=== PATIENT | female | born 1955 | race Caucasian/White ===

== ENCOUNTER 2017-10-20 15:05 | Observation (INO) ==
--- NOTE | 2017-10-20 15:09 | Emergency Department Note ---
Disposition Clinical Impression: Dizziness, Atrial fibrillation, History of Coumadin therapy, Obesity, History of CHF (congestive heart failure) Disposition: Admitted As Inpatient Referrals: Tj Dinh DO [Primary Care Provider] - General Adult HPI - General Stated complaint: Dizzy Time Seen by Provider: 10/20/17 15:07 - History of Present Illness HPI Narrative: 7-year-old female reports emergency department via EMS, there is concern for dizziness. The patient reports she is so dizzy she cannot stand up. She describes nausea. He patient denies any chest pain shortness of breath or abdominal pain no vomiting but she has had recurrent diarrhea. There is no history of fever sore throat runny nose or ear pain. No acute back pain. She has no history of CAD but does have a history of atrial fibrillation. She has not passed out. The patient denies any strokelike symptoms no numbness or weakness in extremity is no bowel or bladder problems no slurred speech or unilateral arm or leg weakness or numbness no facial drooping. The patient denies a headache. He states the difficulties began about 11:30 AM, she was laying bed turn her head decided try to get up and became so dizzy she was unable to walk. She describes significant nausea. There is no history of bleeding of any sort. She is anticoagulated secondary to atrial fibrillation she takes Coumadin. The patient has never had a stroke. - Related Data Home Medications Medication Instructions Recorded Confirmed Diltiazem HCl [Diltiazem ER] 180 mg PO QPM 10/20/17 10/20/17 Furosemide [Lasix] 40 mg PO DAILY 10/20/17 10/20/17 Levothyroxine [Synthroid] 150 mcg PO QAM 10/20/17 10/20/17 Lisinopril/Hydrochlorothiazide 1 each PO DAILY 10/20/17 10/20/17 [Zestoretic 20-12.5 mg Tablet] Metoprolol Succinate 200 mg PO DAILY 10/20/17 10/20/17 Warfarin [Coumadin] 7.5 mg PO 1800 10/20/17 10/20/17 Allergies Allergy/AdvReac Type Severity Reaction Status Date / Time prednisone Allergy Insomnia Verified 10/20/17 15:13 All systems ED: reviewed and negative except as stated. Past Medical History - Past Medical History Medical history: Reports: atrial fibrillation, CHF, hypertension Surgical history: Reports: breast surgery Psychiatric history: Reports: no psych history - Social History Smoking Status: Never smoker Smokeless Tobacco Status: No Alcohol use: Reports: occasionally Drug use: Reports: none Physical Exam - General Limitations: no limitations - Head Head exam: atraumatic, normocephalic, normal inspection - Eye Eye exam: Present: normal appearance, PERRL, EOMI - ENT ENT exam: normal exam, normal oropharynx, mucous membranes moist - Neck Neck exam: Present: normal inspection, full ROM, trachea midline - Chest Chest inspection: Present: symmetric chest wall rise. Absent: tenderness - Respiratory Respiratory exam: Present: normal lung sounds bilaterally - Cardiovascular Cardiovascular exam: Present: regular rate, irregular rhythm - Abdominal Exam Abdominal exam: Present: soft, Non-Tender. Absent: tenderness, distention, guarding, rebound, rigidity - Extremities Exam Extremities exam: Present: normal inspection, full ROM, normal capillary refill. Absent: tenderness, pedal edema, joint swelling, calf tenderness - Expanded Lower Extremity Exam Lower leg exam: Absent: Homans' sign Neurovascular/Tendon exam: Present: normal capillary refill. Absent: pulse deficit, motor deficit, sensory deficit, tendon deficit, extremity cold to touch , pallor - Back Exam Back exam: Present: normal inspection, full ROM. Absent: tenderness, CVA tenderness (R), CVA tenderness (L), vertebral tenderness, sciatic notch tenderness (L) - Neurological Exam Neurological exam: Present: alert, oriented X3, CN II-XII intact. Absent: motor sensory deficit - Skin Skin exam: Present: warm, dry, intact, normal color. Absent: rash, cyanosis, diaphoresis, erythema, pallor, mottled Course Vital Signs Temperature 98.1 F 10/20/17 15:11 Pulse Rate 90 10/20/17 15:11 Respiratory Rate 16 10/20/17 15:11 Blood Pressure 133/80 10/20/17 15:11 O2 Sat by Pulse Oximetry 100 10/20/17 15:11 Temperature 98.1 F 10/20/17 15:11 Pulse Rate 82 10/20/17 16:33 Respiratory Rate 16 10/20/17 16:33 Blood Pressure 149/87 10/20/17 16:33 O2 Sat by Pulse Oximetry 98 10/20/17 16:33 Oxygen Delivery Oxygen Delivery Room Air Medical Decision Making - [facility] Narrative Medical decision making narrative: The patient complains of dizziness which began about 11:30 AM, she has been so dizzy she is been able to get out of bed or walk. Per reports EMS was unable to have her sit up or stand up and had a rollover onto a cot. The emergency department the patient was given Zofran for nausea given a dose of Antivert. CT scan of the head reveals no acute process. Chest x-ray shows changes suggestive of CHF. The patient has a history of atrial for ablation is anticoagulated INR 2.6. In the ED we attempted to get orthostatic blood pressures patient so dizzy she could not even sit up. She was unable to walk in the emergency department or department or clot. Given her age, history of atrial fibrillation, as well as anticoagulant status, with persistent intractable dizziness and nonambulatory state, I thought it be appropriate to admit the patient to hospital. The patient may have an element of peripheral vertigo however central sources cannot be ruled out definitively without further testing. Perhaps an MRI would be helpful with neurology consult. The patient did describe some diarrhea which was nonbloody, she does not have tachycardia or hypotensive and I did not feel that orthostatic hypotension is necessarily the causative etiology for her dizziness. I have consulted with the hospitalist on-call who has accepted the patient to their care. The patient is agreeable with admission. The patient did also report that she has had recurrent bouts of dizziness over the last month causing her having difficulty to walk. Crescendo TIA or posterior circulations issues may be relevant. - Lab Data Lab results reviewed: Yes I reviewed the patient's lab results. Result diagrams: 10/20/17 15:19 10/20/17 15:19 Lab Results 10/20/17 10/20/17 10/20/17 Range/Units 15:19 15:19 15:19 WBC 7.5 (4.3-11.1) K/mcL RBC 4.72 (3.82-4.97) M/mcL Hgb 14.1 (11.5-15.4) g/dL Hct 41.0 (35.3-44.9) % MCV 86.9 (83.0-100.0) fL MCH 29.9 (28.0-33.3) pg MCHC 34.4 (31.6-35.5) g/dL RDW 13.2 (11.5-14.5) % Plt Count 298 (140-400) K/mcL MPV 10.6 (9.4-12.4) fL Immature Gran % 0.3 (0-4) % Seg Neutrophils % 68.2 % Lymphocytes % 20.9 % Monocytes % 7.2 % Eosinophils % 2.7 % Basophils % 0.7 % Neutrophils # 5.1 (1.6-8.9) K/mcL Lymphocytes # 1.6 (0.6-4.6) K/mcL Monocytes # 0.5 (0.0-1.3) K/mcL Eosinophils # 0.2 (0.0-0.6) K/mcL Basophils # 0.1 (0.0-0.2) K/mcL PT (9.4-12.1) Seconds INR APTT (26.0-36.0) Seconds Sodium 135 L (136-145) mEq/L Potassium 3.6 (3.5-5.1) mEq/L Chloride 101 (98-107) mEq/L Carbon Dioxide 24 (23-29) mEq/L BUN 16 (8-23) mg/dL Creatinine 0.84 (0.60-1.20) mg/dL Est GFR ( Amer) > 60 (> 60) Est GFR (Non-Af Amer) > 60 (> 60) BUN/Creatinine Ratio 19 (6-26) Glucose 123 H (70-105) mg/dL Calculated Osmolality 283 (280-300) Lactic Acid (0.5-2.2) mmol/L Calcium 9.2 (8.6-10.3) mg/dL Total Bilirubin 0.7 (0.3-1.0) mg/dL Direct Bilirubin 0.1 (0.0-0.2) mg/dL Indirect Bilirubin 0.6 (0.0-1.2) mg/dL AST 17 (13-39) Units/L ALT 16 (7-52) Units/L Alkaline Phosphatase 93 (34-104) Units/L Troponin I < 0.03 (< 0.04) ng/mL C-Reactive Protein 17 H (Less than 10) mg/L B-Natriuretic Peptide (Less than 100) pg/mL Serum Total Protein 6.7 (6.4-8.9) g/dL Albumin 4.1 (3.5-5.7) g/dL Globulin 2.6 (2.4-3.5) g/dL Albumin/Globulin Ratio 1.6 (1.1-2.2) Urine Color (Yellow) Urine Clarity (Clear) Urine pH (5.0-8.0) pH Units Ur Specific [place] (1.010-1.025) Urine Protein (Neg-Trace) mg/dL Urine Glucose (UA) (Normal) mg/dL Urine Ketones (Negative) mg/dL Urine Blood (Negative) Urine Nitrite (Negative) Urine Bilirubin (Negative) Urine Urobilinogen (Normal) mg/dL Ur Leukocyte Esterase (Negative) Ur Culture Indicated? (NO) 10/20/17 10/20/17 10/20/17 Range/Units 15:19 15:19 15:46 WBC (4.3-11.1) K/mcL RBC (3.82-4.97) M/mcL Hgb (11.5-15.4) g/dL Hct (35.3-44.9) % MCV (83.0-100.0) fL MCH (28.0-33.3) pg MCHC (31.6-35.5) g/dL RDW (11.5-14.5) % Plt Count (140-400) K/mcL MPV (9.4-12.4) fL Immature Gran % (0-4) % Seg Neutrophils % % Lymphocytes % % Monocytes % % Eosinophils % % Basophils % % Neutrophils # (1.6-8.9) K/mcL Lymphocytes # (0.6-4.6) K/mcL Monocytes # (0.0-1.3) K/mcL Eosinophils # (0.0-0.6) K/mcL Basophils # (0.0-0.2) K/mcL PT 28.2 H (9.4-12.1) Seconds INR 2.6 APTT 46.4 H (26.0-36.0) Seconds Sodium (136-145) mEq/L Potassium (3.5-5.1) mEq/L Chloride (98-107) mEq/L Carbon Dioxide (23-29) mEq/L BUN (8-23) mg/dL Creatinine (0.60-1.20) mg/dL Est GFR ( Amer) (> 60) Est GFR (Non-Af Amer) (> 60) BUN/Creatinine Ratio (6-26) Glucose (70-105) mg/dL Calculated Osmolality (280-300) Lactic Acid 2.2 (0.5-2.2) mmol/L Calcium (8.6-10.3) mg/dL Total Bilirubin (0.3-1.0) mg/dL Direct Bilirubin (0.0-0.2) mg/dL Indirect Bilirubin (0.0-1.2) mg/dL AST (13-39) Units/L ALT (7-52) Units/L Alkaline Phosphatase (34-104) Units/L Troponin I (< 0.04) ng/mL C-Reactive Protein (Less than 10) mg/L B-Natriuretic Peptide (Less than 100) pg/mL Serum Total Protein (6.4-8.9) g/dL Albumin (3.5-5.7) g/dL Globulin (2.4-3.5) g/dL Albumin/Globulin Ratio (1.1-2.2) Urine Color Yellow (Yellow) Urine Clarity Clear (Clear) Urine pH 7.0 (5.0-8.0) pH Units Ur Specific [place] 1.010 (1.010-1.025) Urine Protein Negative (Neg-Trace) mg/dL Urine Glucose (UA) Normal (Normal) mg/dL Urine Ketones 15 H (Negative) mg/dL Urine Blood Negative (Negative) Urine Nitrite Negative (Negative) Urine Bilirubin Negative (Negative) Urine Urobilinogen Normal (Normal) mg/dL Ur Leukocyte Esterase Negative (Negative) Ur Culture Indicated? NO (NO) 10/20/17 Range/Units 16:11 WBC (4.3-11.1) K/mcL RBC (3.82-4.97) M/mcL Hgb (11.5-15.4) g/dL Hct (35.3-44.9) % MCV (83.0-100.0) fL MCH (28.0-33.3) pg MCHC (31.6-35.5) g/dL RDW (11.5-14.5) % Plt Count (140-400) K/mcL MPV (9.4-12.4) fL Immature Gran % (0-4) % Seg Neutrophils % % Lymphocytes % % Monocytes % % Eosinophils % % Basophils % % Neutrophils # (1.6-8.9) K/mcL Lymphocytes # (0.6-4.6) K/mcL Monocytes # (0.0-1.3) K/mcL Eosinophils # (0.0-0.6) K/mcL Basophils # (0.0-0.2) K/mcL PT (9.4-12.1) Seconds INR APTT (26.0-36.0) Seconds Sodium (136-145) mEq/L Potassium (3.5-5.1) mEq/L Chloride (98-107) mEq/L Carbon Dioxide (23-29) mEq/L BUN (8-23) mg/dL Creatinine (0.60-1.20) mg/dL Est GFR ( Amer) (> 60) Est GFR (Non-Af Amer) (> 60) BUN/Creatinine Ratio (6-26) Glucose (70-105) mg/dL Calculated Osmolality (280-300) Lactic Acid (0.5-2.2) mmol/L Calcium (8.6-10.3) mg/dL Total Bilirubin (0.3-1.0) mg/dL Direct Bilirubin (0.0-0.2) mg/dL Indirect Bilirubin (0.0-1.2) mg/dL AST (13-39) Units/L ALT (7-52) Units/L Alkaline Phosphatase (34-104) Units/L Troponin I (< 0.04) ng/mL C-Reactive Protein (Less than 10) mg/L B-Natriuretic Peptide 138 H (Less than 100) pg/mL Serum Total Protein (6.4-8.9) g/dL Albumin (3.5-5.7) g/dL Globulin (2.4-3.5) g/dL Albumin/Globulin Ratio (1.1-2.2) Urine Color (Yellow) Urine Clarity (Clear) Urine pH (5.0-8.0) pH Units Ur Specific [place] (1.010-1.025) Urine Protein (Neg-Trace) mg/dL Urine Glucose (UA) (Normal) mg/dL Urine Ketones (Negative) mg/dL Urine Blood (Negative) Urine Nitrite (Negative) Urine Bilirubin (Negative) Urine Urobilinogen (Normal) mg/dL Ur Leukocyte Esterase (Negative) Ur Culture Indicated? (NO) - Radiology Data Radiology results reviewed: Yes I reviewed the patient's radiology results.
[2017-10-20] MEDS ORDERED: Ondansetron 4 MG/2 ML VIAL IVP ONE (15:14)
[2017-10-20] MEDS ORDERED: 0.9 % Sodium Chloride 1,000 ML IVC SCH (15:15)
[2017-10-20 15:38] LABS: Basophils # 0.1 K/mcL (0.0-0.2); Basophils % 0.7 %; Eosinophils # 0.2 K/mcL (0.0-0.6); Eosinophils % 2.7 %; Hemoglobin 14.1 g/dL (11.5-15.4); Immature Granulocytes % 0.3 % (0-4); Lymphocytes # 1.6 K/mcL (0.6-4.6); Lymphocytes % 20.9 %; Mean Corpuscular HGB Conc 34.4 g/dL (31.6-35.5); Mean Corpuscular Hemoglobin 29.9 pg (28.0-33.3); Mean Corpuscular Volume 86.9 fL (83.0-100.0); Mean Platelet Volume 10.6 fL (9.4-12.4); Monocytes # 0.5 K/mcL (0.0-1.3); Monocytes % 7.2 %; Neutrophils # 5.1 K/mcL (1.6-8.9); Platelet Count 298 K/mcL (140-400); Red Blood Count 4.72 M/mcL (3.82-4.97); Red Cell Distribution Width 13.2 % (11.5-14.5); Segmented Neutrophils % 68.2 %
[2017-10-20 15:43] LABS: INR 2.6; Prothrombin Time 28.2 Seconds (9.4-12.1)
[2017-10-20 15:45] LABS: Activated Partial Thrombo Time 46.4 Seconds (26.0-36.0)
[2017-10-20 15:50] LABS: Albumin 4.1 g/dL (3.5-5.7); Albumin/Globulin Ratio 1.6 (1.1-2.2); Bilirubin,Direct 0.1 mg/dL (0.0-0.2); Bilirubin,Indirect 0.6 mg/dL (0.0-1.2); Bilirubin,Total 0.7 mg/dL (0.3-1.0); Globulin 2.6 g/dL (2.4-3.5); Total Protein 6.7 g/dL (6.4-8.9)
[2017-10-20 15:51] LABS: BUN/Creatinine Ratio 19 (6-26); Blood Urea Nitrogen 16 mg/dL (8-23); Calcium 9.2 mg/dL (8.6-10.3); Carbon Dioxide 24 mEq/L (23-29); Chloride 101 mEq/L (98-107); Glucose 123 mg/dL (70-105); Osmolality,Calculated 283 (280-300); Potassium 3.6 mEq/L (3.5-5.1); Sodium 135 mEq/L (136-145); eGFR For African Americans > 60 (> 60); eGFR For Non-African Americans > 60 (> 60)
[2017-10-20 15:52] LABS: Troponin I < 0.03 ng/mL (< 0.04)
[2017-10-20 16:14] LABS: Bilirubin,Urine Negative (Negative); Blood,Urine Negative (Negative); Clarity,Urine Clear (Clear); Color,Urine Yellow (Yellow); Glucose,Urine (UA) Normal (Normal); Ketones,Urine 15 mg/dL (Negative); Leukocyte Esterase,Urine Negative (Negative); Nitrite,Urine Negative (Negative); Protein,Urine Negative (Neg-Trace); Urobilinogen,Urine Normal (Normal)
[2017-10-20] MEDS ORDERED: Ondansetron 4 MG/2 ML VIAL IVP PRN (17:46)
[2017-10-20] MEDS ORDERED: Naloxone 0.4 MG/ML INJ IVP PRN (18:08)
--- NOTE | 2017-10-20 18:19 | Internal Med History&Physical ---
Date of Encounter: 10/20/17 Time of Encounter: 18:15 Internal Medicine - H&P: HPI Chief complaint: dizziness Admitted From: Home Plans for Post Hospital Care: Home History of present illness: Ms. Richardson is a 61 year old female with a PMH of atrial fibrillation, CHF and hypertension. She presents to [facility] today with an acute onset of severe dizziness. She reports that this morning at around 11:30 she was overcame with some intense dizzy sensation. She is reporting that since this morning she has been unable to ambulate or stand due to severe dizziness. She reports no prior history of TIA or CVA. She denies any blurred or doubled vision, syncope, chest pain, palpitations, shortness of breath, abdominal pain, vomiting, paresthesias, slurred speech, facial droop, headache or gait ataxia. She admits to some ear pressure, and fullness but denies any URI symptoms. She does admit to a 1-month h/o intermittent diarrhea which occurs after meals. She notes that for the last week the diarrhea has been occuring on most days for at least one episode daily. Workup in the ED included a CXR and CT head. CXR found mild congestive heart failure. CT head negative. CBC, BMP unremarkable. Past Med Surg Social Fam HX - Past Medical History Medical history: atrial fibrillation, CHF, hypertension Psychiatric history: no psych history - Past Surgical History Surgical History: breast surgery - Social History Smoking Status: Never smoker Smokeless Tobacco Status: No Alcohol use: occasionally Drug use: none Internal Medicine - H&P: Meds Diltiazem HCl [Diltiazem ER] 180 mg PO QPM 10/20/17 [History] Furosemide [Lasix] 40 mg PO DAILY 10/20/17 [History] Levothyroxine [Synthroid] 150 mcg PO QAM 10/20/17 [History] Lisinopril/Hydrochlorothiazide [Zestoretic 20-12.5 mg Tablet] 1 each PO DAILY [History] Metoprolol Succinate 200 mg PO DAILY 10/20/17 [History] Warfarin [Coumadin] 7.5 mg PO 1800 10/20/17 [History] 3 Allergy/AdvReac Type Severity Reaction Status Date / Time prednisone Allergy Insomnia Verified 10/20/17 15:13 All Systems PM: A 10-system review of systems was performed and is negative for pertinent findings except as documented above in the HPI. Review of systems: REVIEW OF SYSTEMS GENERAL: Negative for any nausea, vomiting, fevers, chills, or weight loss. NEUROLOGIC: Negative for any blurry vision, blind spots, double vision, facial asymmetry, dysphagia, dysarthria, hemiparesis, hemisensory deficits, ataxia. Positive for dizziness which is worse with position change HEENT: Negative for any head trauma, neck trauma, neck stiffness, photophobia, phonophobia, sinusitis, rhinitis. CARDIAC: Negative for any dyspnea on exertion, paroxysmal nocturnal dyspnea, peripheral edema. Positive for mild retrosternal chest pressure with radiation to the right neck PULMONARY: Negative for any shortness of breath, wheezing, COPD, or TB exposure. GASTROINTESTINAL: Negative for any abdominal pain, nausea, vomiting, bright red blood per rectum, melena. GENITOURINARY: Negative for any dysuria, hematuria, incontinence. INTEGUMENTARY: Negative for any rashes, cuts, RHEUMATOLOGIC: Negative for any joint pains, photosensitive rashes, history of vasculitis or kidney problems. - Constitutional Vitals: Temp Pulse Resp BP Pulse Ox 98.1 F 76 16 149/70 100 10/20/17 15:11 10/20/17 18:04 10/20/17 18:04 10/20/17 18:04 10/20/17 18:04 General appearance: Present: cooperative, A&O X 3, no acute distress, answers questions appropriately Exam: PHYSICAL EXAMINATION: GENERAL: The patient is a well-developed, well-nourished female in no apparent distress.She is alert and oriented x3. HEENT: Head is normocephalic and atraumatic. Extraocular muscles are intact. Pupils are equal, round, and reactive to light and accommodation.. NECK: Supple. No carotid bruits. No lymphadenopathy or thyromegaly. LUNGS: Clear to auscultation. HEART: Regular rate and rhythm without murmur. ABDOMEN: Soft, nontender, and nondistended. Positive bowel sounds. No hepatosplenomegaly was noted. EXTREMITIES: No swelling or erythema noted, pulses 2+ DP/PT NEUROLOGIC: Cranial nerves II through XII are grossly intact. PSYCHIATRIC: appropriate affect SKIN: No ulceration, rashes or lesions Internal Med - H&P Results - Labs CBC & Chem 7: 10/20/17 15:19 10/20/17 15:19 - EKG Data -: EKG Interpreted by Myself Rate: tachycardia - EKG Data Prior EKG available for review: yes When compared to previous EKG: there is no significant change EKG comments: 10/20/17 18:22 a-fib, no ST elevations or depression - Impressions Impressions Chest X-Ray 10/20/17 15:09 IMPRESSION: 1. Cardiomegaly. 2. Calcific atherosclerosis aorta. 3. Findings typical of mild congestive heart failure. Central interstitial pneumonitis may have same appearance. Correlate with clinical presentation. D/ / Damien Barboza / Damien Barboza Interpreting Provider: Damien Barboza Head CT 10/20/17 15:09 IMPRESSION: No acute intracranial abnormality. D/ / Michael Trevino MD / Michael Trevino MD Interpreting Provider: Michael Trevino MD - Assessment and plan (1) Dizziness Current Visit: Yes Status: Acute Assessment and plan: Presents today with an acute onset of severe dizziness. She reports that this morning at around 11:30 am she awoke and rolled over and was overcame with an intense dizziness. Since then she has not been able to stand or ambulate. She denies any paresthesias, slurred speech, facial droop or gait ataxia. Her neuro examination was nonfocal. No prior history of CVA or TIAs. However, she does have a history of atrial fibrillation for which she is taking Coumadin. Additionally, she also reports a history of vertigo. -Stat CT negative -MRI head/brain without contrast to further evaluate for potential posterior circulatory infarct -Carotid Doppler B/L -CBC, BMP in am -Continue Coumadin with pharmacy to dose -Cardiac diet -NIHSS -Neurochecks Q4hrs (2) Atrial fibrillation, chronic Current Visit: Yes Status: Acute Assessment and plan: Rate controlled, hemodynamically stable. Continue Coumadin with PT to dose (3) DVT prophylaxis Current Visit: Yes Status: Acute Assessment and plan: Therapeutic on Coumadin. Continue Coumadin - Time Spent With Patient Total time spent is greater than 50% in coordination of care (as documented) at patient's floor/unit and/or counseling patient: 25 - 35 minutes
[2017-10-20] MEDS ORDERED: *HR* Warfarin 7.5 MG TABLET PO ONE (19:45)
[2017-10-20 19:46] LABS: Thyroid Stimulating Hormone 0.557 mcIU/mL (0.340-5.600)
[2017-10-20] MEDS: Diltiazem CD (24hr) 180 MG CAPSULE PO SCH (20:07)
[2017-10-21 02:16] LABS: Basophils % 0.5 %; Eosinophils # 0.2 K/mcL (0.0-0.6); Eosinophils % 2.1 %; Hematocrit 37.8 % (35.3-44.9); Immature Granulocytes % 0.2 % (0-4); Lymphocytes # 2.1 K/mcL (0.6-4.6); Lymphocytes % 25.5 %; Mean Corpuscular HGB Conc 33.1 g/dL (31.6-35.5); Mean Corpuscular Hemoglobin 29.1 pg (28.0-33.3); Mean Corpuscular Volume 88.1 fL (83.0-100.0); Mean Platelet Volume 10.4 fL (9.4-12.4); Monocytes # 0.7 K/mcL (0.0-1.3); Neutrophils # 5.2 K/mcL (1.6-8.9); Platelet Count 265 K/mcL (140-400); Red Blood Count 4.29 M/mcL (3.82-4.97); Red Cell Distribution Width 13.5 % (11.5-14.5); Segmented Neutrophils % 63.7 %
[2017-10-21 02:17] LABS: Hemoglobin 12.5 g/dL (11.5-15.4)
[2017-10-21 02:36] LABS: BUN/Creatinine Ratio 16 (6-26); Blood Urea Nitrogen 12 mg/dL (8-23); Calcium 8.5 mg/dL (8.6-10.3); Carbon Dioxide 27 mEq/L (23-29); Chloride 106 mEq/L (98-107); Glucose 96 mg/dL (70-105); Osmolality,Calculated 290 (280-300); Potassium 3.7 mEq/L (3.5-5.1); Sodium 140 mEq/L (136-145); eGFR For African Americans > 60 (> 60); eGFR For Non-African Americans > 60 (> 60)
[2017-10-21 02:37] LABS: Chol/HDL Ratio 5.1 (0-4.9)
[2017-10-21] MEDS: Lisinopril-HCTZ 20-12.5mg TABLET PO SCH (08:30)
--- NOTE | 2017-10-21 08:38 | Internal Med Progress Note ---
Date of Encounter: 10/21/17 Time of Encounter: 08:36 - Assessment and plan (1) Acute exacerbation of CHF (congestive heart failure) Current Visit: Yes Status: Acute Assessment and plan: Acute diastolic CHF exacerbation Start IV Lasix, fluid restriction Echocardiogram Strict I's and O's and daily weight Chest x-ray shows mild vascular congestion Send respiratory viral panel, nonspecific symptoms Qualifiers: Heart failure type: diastolic Qualified Code(s): I50.33 - Acute on chronic diastolic (congestive) heart failure (2) Chronic diarrhea Current Visit: Yes Status: Acute Assessment and plan: GI panel to be sent (3) Atrial fibrillation, chronic Current Visit: Yes Status: Acute Assessment and plan: Rate controlled, hemodynamically stable. Continue Coumadin , pharmacy to dose (4) Dizziness Current Visit: Yes Status: Acute Assessment and plan: unclear etiology, consider possible acute labyrinthitis -CT negative -MRI head/brain without contrast negative -Carotid Doppler B/L -CBC, BMP in am -Continue Coumadin with pharmacy to dose -Cardiac diet -NIHSS -Neurochecks (5) DVT prophylaxis Current Visit: Yes Status: Acute Assessment and plan: Therapeutic on Coumadin. Continue Coumadin - Time Spent With Patient Total time spent is greater than 50% in coordination of care (as documented) at patient's floor/unit and/or counseling patient: - Constitutional Vitals: Temp Pulse Resp BP Pulse Ox 98.5 F 73 16 97/64 98 10/21/17 06:29 10/21/17 06:29 10/21/17 06:29 10/21/17 06:29 10/21/17 06:29 General appearance: Present: cooperative, A&O X 3, no acute distress, answers questions appropriately Internal Medicine: Result - Labs CBC & Chem 7: 10/21/17 01:45 10/21/17 01:45 Labs: Short CBC 10/21/17 Range/Units 01:45 WBC 8.1 (4.3-11.1) K/mcL Hgb 12.5 D (11.5-15.4) g/dL Hct 37.8 (35.3-44.9) % Plt Count 265 (140-400) K/mcL Neutrophils # 5.2 (1.6-8.9) K/mcL BMP 10/21/17 01:45 Sodium 140 Potassium 3.7 Chloride 106 Carbon Dioxide 27 BUN 12 Creatinine 0.75 Glucose 96 Calcium 8.5 L Cardiac Enzymes 10/20/17 Range/Units 21:16 Troponin I < 0.03 (< 0.04) ng/mL - ABG Interpretation ABG results: PT/INR, D-dimer PT 28.2 Seconds (9.4-12.1) H 10/20/17 15:19 - Impressions Impressions Brain MRI 10/20/17 18:25 IMPRESSION: 1. No acute intracranial abnormality. 2. Minimal chronic white matter microvascular ischemic changes. D/ / Tam Barraza / Tam Barraza Interpreting Provider: Tam Barraza Consult Discharge Plan - Plan
[2017-10-21] MEDS ORDERED: Furosemide 40 MG TABLET PO SCH (09:00)
[2017-10-21] MEDS: Metoprolol XL (24 HR) Succ 50 MG TAB.ER.24H PO SCH (09:10)
[2017-10-21 09:30] LABS: INR 2.3; Prothrombin Time 25.6 Seconds (9.4-12.1)
[2017-10-21] MEDS: Furosemide 20 MG/2 ML VIAL IVP SCH ×2 (09:35→16:26)
[2017-10-21] MEDS: Diltiazem CD (24hr) 180 MG CAPSULE PO SCH (16:26)
[2017-10-21 16:43] LABS: Adenovirus Not Detected (Not Detect); Bordetella Pertussis Not Detected (Not Detect); Chlamydophila pneumoniae Not Detected (Not Detect); Coronavirus 229E Not Detected (Not Detect); Coronavirus HKU1 Not Detected (Not Detect); Coronavirus NL63 Not Detected (Not Detect); Coronavirus OC43 Not Detected (Not Detect); Human Metapneumovirus Not Detected (Not Detect); Human Rhinovirus/Enterovirus Not Detected (Not Detect); Influenza A Subtype 2009 H1 Not Detected (Not Detect); Influenza A Untypeable Not Detected (Not Detect); Influenza B Not Detected (Not Detect); Mycoplasma pneumoniae Not Detected (Not Detect); Parainfluenza Virus 1 Not Detected (Not Detect); Parainfluenza Virus 2 Not Detected (Not Detect); Parainfluenza Virus 3 Not Detected (Not Detect); Parainfluenza Virus 4 Not Detected (Not Detect); Respiratory Syncytial Virus Not Detected (Not Detect)
[2017-10-21] MEDS ORDERED: *HR* Warfarin 7.5 MG TABLET PO ONE (18:00)
[2017-10-21] MEDS ORDERED: Warfarin perPT PO PRN (18:00)
--- NOTE | 2017-10-21 19:55 | Electrocardiograph Report ---
[address] [place] [address] Test Date: 2017-10-20 Pat Name: Nannette Richardson Department: 103 Room: [facility] Gender: F Bottom Filler: JHONY : 1955 Requested By: Mook Sahni Order Number: [id number] Reading MD: Florencio Narayanan Measurements Intervals [place] Rate: 87 P: [place]: 0 QRS: 15 QRSD: 148 T: 66 QT: 398 QTc: 442 Interpretive Statements ATRIAL FIBRILLATION INTRAVENTRICULAR CONDUCTION DELAY ANTEROSEPTAL TX, AGE UNDETERMINED BASELINE ARTIFACT Electronically Signed On 10-21-2017 19:54:16 EDT by Florencio Narayanan
[2017-10-22] MEDS: Furosemide 20 MG/2 ML VIAL IVP SCH ×2 (08:00→15:36)
[2017-10-22] MEDS: Metoprolol XL (24 HR) Succ 50 MG TAB.ER.24H PO SCH (08:01)
[2017-10-22] MEDS: Lisinopril-HCTZ 20-12.5mg TABLET PO SCH (08:04)
--- NOTE | 2017-10-22 14:47 | Internal Med Progress Note ---
Date of Encounter: 10/22/17 Time of Encounter: 13:00 - Assessment and plan (1) Dizziness Current Visit: Yes Status: Acute Assessment and plan: unclear etiology, consider possible acute labyrinthitis -CT negative -MRI head/brain without contrast negative -Carotid Doppler B/L -CBC, BMP in am -Continue Coumadin with pharmacy to dose -Cardiac diet -NIHSS -Neuroccks 10/22/2017-it seems the biggest component of her dizziness at this time is benign positional vertigo given the [place]-Hallpike maneuver is positive. I have initiated the discussion with outpatient vestibular rehabilitation with the patient. Patient will be seen by occupational therapy and physical therapy in this hospitalization. I will continue meclizine at the current rate. At least help with symptom relief (2) Atrial fibrillation, chronic Current Visit: Yes Status: Acute Assessment and plan: Rate controlled, hemodynamically stable. Continue Coumadin , pharmacy to dose (3) DVT prophylaxis Current Visit: Yes Status: Acute Assessment and plan: Therapeutic on Coumadin. Continue Coumadin (4) Acute exacerbation of CHF (congestive heart failure) Current Visit: Yes Status: Acute Assessment and plan: Acute diastolic CHF exacerbation Start IV Lasix, fluid restriction Echocardiogram Strict I's and O's and daily weight Chest x-ray shows mild vascular congestion Send respiratory viral panel, nonspecific symptoms Qualifiers: Heart failure type: diastolic Qualified Code(s): I50.33 - Acute on chronic diastolic (congestive) heart failure (5) Chronic diarrhea Current Visit: Yes Status: Acute Assessment and plan: GI panel to be sent - Time Spent With Patient Total time spent is greater than 50% in coordination of care (as documented) at patient's floor/unit and/or counseling patient: - Subjective Interval history: Patient continues to feel extreme dizziness especially on movement of her head to the right or left side. She feels very unsteady on any attempted ambulation so much so that she is afraid of walking at this point. She states that meclizine has helped but not to a great extent. - Constitutional Vitals: Temp Pulse Resp BP Pulse Ox 98.4 F 83 16 114/76 96 10/22/17 11:00 10/22/17 11:00 10/22/17 11:00 10/22/17 11:00 10/22/17 11:00 General appearance: Present: cooperative, A&O X 3, no acute distress, answers questions appropriately Exam: GENERAL: Alert, moderate distress, cooperative EYES: PERRLA, EOMI EARS: External ears normal, canals clear OROPHARYNX: Lips, mucosa, and tongue normal. Teeth and gums normal. Oropharynx normal. NECK: No jugulovenous distention, No carotid bruits, Carotid pulse normal contour, Supple LUNGS: Lungs clear to auscultation, Good diaphragmatic excursion CARDIAC: Normal S1 and S2; no rubs, murmurs, or gallops ABDOMEN: Abdomen soft, non-tender, BS normal, No masses or organomegaly EXTREMITIES: 2+ pitting edema bilateral lower extremity NEURO: Gait could not be tested due to extreme dizziness. Modified [place]- Hallpike maneuver is positive strongly PULSES: 2+ radial, 2+ carotid Rest of the exam is non contributory Internal Medicine: Result - Labs CBC & Chem 7: 10/21/17 01:45 10/21/17 01:45 - ABG Interpretation ABG results: PT/INR, D-dimer PT 33.0 Seconds (9.4-12.1) H 10/22/17 06:17 Consult Discharge Plan - Plan Referrals: Tj Dinh DO [Primary Care Provider] -
[2017-10-22] MEDS: Diltiazem CD (24hr) 180 MG CAPSULE PO SCH (17:00)
[2017-10-22] MEDS ORDERED: *HR* Warfarin 5 MG TABLET PO ONE (18:00)
[2017-10-23 03:03] LABS: INR 2.9; Prothrombin Time 31.4 Seconds (9.4-12.1)
[2017-10-23] MEDS: Furosemide 20 MG/2 ML VIAL IVP SCH ×2 (08:49→15:44)
[2017-10-23] MEDS: Lisinopril-HCTZ 20-12.5mg TABLET PO SCH (08:50)
[2017-10-23] MEDS: Metoprolol XL (24 HR) Succ 50 MG TAB.ER.24H PO SCH (08:50)
--- NOTE | 2017-10-23 16:22 | Internal Med Progress Note ---
Date of Encounter: 10/23/17 Time of Encounter: 16:18 - Assessment and plan (1) Vertigo Current Visit: Yes Status: Acute Assessment and plan: -CT negative -MRI head/brain without contrast negative -Carotid Doppler B/L normal. - it seems the biggest component of her dizziness at this time is benign positional vertigo given the [place]-Hallpike maneuver is positive. - refer to outpatient vestibular rehab. - DC in am. (2) Atrial fibrillation, chronic Current Visit: No Status: Chronic Assessment and plan: Rate controlled, hemodynamically stable. Continue Coumadin , pharmacy to dose (3) Chronic diarrhea Current Visit: No Status: Chronic Assessment and plan: GI negative, likely IBS. (4) CHF (congestive heart failure) Current Visit: No Status: Chronic Assessment and plan: - stable, continue home meds. Qualifiers: Heart failure type: diastolic Heart failure chronicity: chronic Qualified Code(s): I50.32 - Chronic diastolic (congestive) heart failure - Time Spent With Patient Total time spent is greater than 50% in coordination of care (as documented) at patient's floor/unit and/or counseling patient: 25 - 35 minutes - Subjective Interval history: improved vertigo. - Constitutional Vitals: Temp Pulse Resp BP Pulse Ox 97.7 F 75 16 102/66 95 10/23/17 15:27 10/23/17 15:27 10/23/17 15:27 10/23/17 15:27 10/23/17 15:27 General appearance: Present: cooperative, A&O X 3, no acute distress, answers questions appropriately Exam: PHYSICAL EXAMINATION: GENERAL APPEARANCE: The patient is alert, oriented and in no acute distress. HEENT: Head is normocephalic. The sinuses are nontender. Pupils are equal and reactive. The nares are patent. Oropharynx clear without lesions. NECK: Supple without lymphadenopathy. HEART: Regular rate and rhythm. LUNGS: No crackles or wheezes are heard. ABDOMEN: Soft, nontender, nondistended with good bowel sounds heard. Inguinal area is normal. EXTREMITIES: Without cyanosis, clubbing or edema. NEUROLOGICAL: Gross nonfocal. SKIN: Warm and dry without any rash. Internal Medicine: Result - Labs CBC & Chem 7: 10/21/17 01:45 10/21/17 01:45 - ABG Interpretation ABG results: PT/INR, D-dimer PT 31.4 Seconds (9.4-12.1) H 10/23/17 01:41 Consult Discharge Plan - Plan Referrals: Tj Dinh DO [Primary Care Provider] -
[2017-10-23] MEDS: Diltiazem CD (24hr) 180 MG CAPSULE PO SCH (16:42)
[2017-10-23] MEDS ORDERED: *HR* Warfarin 5 MG TABLET PO ONE (18:00)
[2017-10-24 01:51] LABS: INR 2.6; Prothrombin Time 28.4 Seconds (9.4-12.1)
[2017-10-24] MEDS: Furosemide 20 MG/2 ML VIAL IVP SCH (08:06)
[2017-10-24] MEDS: Lisinopril-HCTZ 20-12.5mg TABLET PO SCH (08:15)
[2017-10-24] MEDS: Metoprolol XL (24 HR) Succ 50 MG TAB.ER.24H PO SCH (08:16)
--- NOTE | 2017-10-24 10:17 | Discharge Summary ---
- NOTES TO OUTPATIENT PROVIDER Notes to Outpatient Provider: Pt admitted with benign positional vertigo. To have outpatient therapy. BP meds adjusted - Prinzide and Lasix on hold till follow up. Orders not resulted at time of discharge: Pending orders 10/25/17 04:00 PT/INR [Prothrombin Time INR] [COAG] AM 0400 10/26/17 04:00 PT/INR [Prothrombin Time INR] [COAG] AM 0400 Date of Encounter: 10/24/17 Time of Encounter: 10:25 - Discharge Diagnosis (1) Benign paroxysmal positional vertigo Priority: Primary Status: Acute Qualifiers: Laterality: bilateral Qualified Code(s): H81.13 - Benign paroxysmal vertigo , bilateral (2) Atrial fibrillation, chronic Priority: Secondary Status: Chronic (3) Chronic diarrhea Priority: Secondary Status: Chronic (4) CHF (congestive heart failure) Priority: Secondary Status: Chronic Qualifiers: Heart failure type: diastolic Heart failure chronicity: chronic Qualified Code(s): I50.32 - Chronic diastolic (congestive) heart failure (5) Vertigo Priority: Secondary Status: Acute Hospital course: Ms. Richardson is a 61 year old female with hx of chronic a fib, HTN and CHF presented to ED with acute onset of dizziness. She was unable to ambulate or stand. She was evaluated in the ED and admitted for further work up. Ms Richardson was admitted to [facility]. She had issues with fluid overload and acute diastolic CHF and was diuresed initially. She was also having issues with chronic diarrhea. Her atrial fibrillation was rate controlled. Atalissa Hallpike was positive and patient was started on Antivert. She had slow steady improvement in her symptoms. Today she is able to ambulate with a walker. She is doing better with the Antivert. She is afebrile today. She is ready for discharge home with outpatient therapy. Scripts for walker and 3 in 1 commode written. Discharge discussed with: patient, family, nurse - Time Spent with Patient Total time spent providing and/or coordinating discharge services: 42min - Discharge Medications Prescriptions: Meclizine [Antivert] 25 mg PO TID PRN #40 tablet PRN Reason: Dizziness Home Medications: Diltiazem HCl [Diltiazem ER] 180 mg PO QPM 10/20/17 [History] Levothyroxine [Synthroid] 150 mcg PO QAM 10/20/17 [History] Metoprolol Succinate 200 mg PO DAILY 10/20/17 [History] Warfarin [Coumadin] 7.5 mg PO 1800 10/20/17 [History] Meclizine [Antivert] 25 mg PO TID PRN #40 tablet 10/24/17 [Rx] Allergies/Adverse Reactions: 3 Allergy/AdvReac Type Severity Reaction Status Date / Time prednisone Allergy Insomnia Verified 10/20/17 15:13 Date of admission: 10/20/17 17:52 Primary care physician: Zenobia Betancur Consults: 10/22/17 12:18 Consult to Occupational Therapy [CONS] Routine Comment: Evaluate, develop and implement POC Reason for Consult: Eval and treat, dizziness Does patient have active BEDREST order?: No Is patient medically & hemodynamically stable?: Yes Patient assessed for mobility or mobilized this visit?: Yes Consult to Physical Therapy [CONS] Routine Comment: Evaluate, develop and implement POC Reason for Consult: Eval and treat, dizziness Does patient have active BEDREST order?: No Is patient medically & hemodynamically stable?: Yes Patient assessed for mobility or mobilized this visit?: Yes Discharging clinician: Vijay Perez Anticipated date of discharge: 10/24/17 - Constitutional Vitals: Temp Pulse Resp BP Pulse Ox 97.7 F 74 15 100/64 97 10/24/17 07:58 10/24/17 07:58 10/24/17 07:58 10/24/17 07:58 10/24/17 07:58 General appearance: Present: cooperative, A&O X 3, answers questions appropriately - Head Head exam: Present: normocephalic - Eye Eye exam: Present: EOMI, conjuntiva pink - ENT ENT exam: Present: mucous membranes dry - Respiratory Respiratory exam: Present: CTAB. Absent: rales, rhonchi, wheezes - Cardiovascular Cardiovascular exam: Present: irregular rhythm. Absent: tachycardia - GI/Abdominal GI/Abdominal exam: Present: soft. Absent: tenderness - Extremities Exam Extremities exam: Present: warm. Absent: tenderness - Neurological Exam Neurological exam: Present: alert, oriented X3 - Skin Skin exam: Present: dry, warm - Patient Status Disposition: Home, Self-Care Condition: Good Functional capacity at discharge: uses cane/walker Overall status at discharge: patient is progressing back to baseline - Discharge Instructions Follow Up With: Tj Dinh DO [Primary Care Provider] - Forms: ED Satisfaction Letter Additional Instructions: Please hold Lasix and Prinzide until follow up with primary care physician. Monitor your blood pressure and take record to your primary care physician. - Diet and Activity Activity: increase activity as tolerated Diet: advance to your usual diet
[2017-10-24 11:45] VITALS: BP 108/69
[2017-10-24] MEDS ORDERED: *HR* Warfarin 5 MG TABLET PO ONE (18:00)
== END 2017-10-24 15:30 | disposition home or self-care (01) ==
LOC: 3NENU 15:05 → EMEROO 15:05 → SUATTDRO 17:52 → 3NENU 18:45
PROVIDERS: ADMIT Nurse Practitioner; ATTEND Internal Medicine